=== PATIENT | male | born 1970 | race Caucasian/White ===

== ENCOUNTER 2016-08-15 08:30 | Emergency (ER) | payer SELFPAY ==
[~2016-08-15] VITALS: Ht 180.3 cm; Wt 100.0 kg
[~2016-08-15 08:30] MED LIST: CYCL10TA9 PO; HYDR1TAB PO; HYDR1TAB3 PO; IBP800T PO; NAPR500T PO; PRD20T PO; TBR.3OP51 OP; flexeril PO
--- OUTSIDE RECORDS SUMMARY | 2016-08-15 08:36 | XMS REPORT | Continuity of Care Document ---
Author Author [facility] Organization [facility] Address Unknown Phone Unavailable Care Team Providers Care Insurance Billing Specialist Name Role Phone NO, LOCAL PHYSICIAN PCP Unavailable Insurance Providers Payer Name Policy Number Subscriber Name Relationship [facility] [id number] Niko Dimas Self / Same As Patient Advance Directives Directive Response Recorded Date/Time Advance Directives No 10/20/15 10:12am Resuscitation Status Full Code 10/20/15 10:12am Chief Complaint and Reason for Visit Chief Complaint Back Problems Reason for Visit Back pain Problems Active Problems Medical Problem Onset Date Status Back pain Unknown Acute Medications Current Home Medications Medication Dose Units Route Directions Days/Qty Instructions Start Date Hydrocodone Bit/Acetaminophen 1 Each 1 Each Oral Every 4HRS as needed 10 02/22/10 Naproxen 500 Mg 500 Mg Oral Twice A Day as needed for Pain 30 10/20/15 [Flexeril] 5 Mg Oral Three Times A Day as needed for Pain 20 10/20/15 Past Home Medications Medication Directions Ordered Status Prednisone 20 Mg Tab, 3 Tab Oral Daily 09/29/09 Discontinued Acetaminophen/Hydrocodone Bitart 1 Each Tablet, 1 - 2 Each Oral Q4hr Prn 31/03 Discontinued Cyclobenzaprine Hcl (Flexeril) 10 Mg Tablet, 1 Each Oral Three Times A Day And Prn 09/29/09 Discontinued Tobramycin Sulfate 5 Ml Soln, 0 Ophthalmic Give Every 4 Hrs On Schedule 24/03 Discontinued Ibuprofen 800 Mg Tab, 800 Mg Oral Three Times A Day as needed 02/22/10 Discontinued Social History Social History Problem Response Recorded Date/Time Alcohol Use Denies Use 10/20/2015 10:12am Recreational Drug Use No 10/20/2015 10:12am Recent Foreign Travel No 10/20/2015 10:09am Recent Infectious Disease Exposure No 10/20/2015 10:09am Hospitalization with Isolation Denies 10/20/2015 10:09am Smoking Status Never a Smoker 10/20/2015 10:12am Query Response Start Date Stop Date Smoking Status Never a Smoker Hospital Discharge Instructions No hospital discharge instructions. Plan of Care Discharge Date 10/20/15 11:15am Disposition 01 HOME, SELF-CARE Condition at Discharge Stable Instructions/Education Provided Acute Low Back Pain (ED) Prescriptions See Medication Section Referrals NO,LOCAL PHYSICIAN - Primary Care Physician Additional Instructions/Education 1. Medication as directed 2. Follow-up with your doctor next week All discharge instructions reviewed with patient and/or family. Voiced understanding. Functional Status No functional status results. Allergies, Adverse Reactions, Alerts Allergen Type Severity Reaction Status Last Updated Morphine Allergy Mild Active 09/29/09 Immunizations No immunization records. Vital Signs Acute Vital Signs Vital Response Date/Time Temperature (Fahrenheit) 97.8 degrees F (97.6 - 99.5) 10/20/2015 10:09am Temperature (Calculated Celsius) 36.43892 degrees C (36.4 - 37.5) 10/20/2015 10:09am Temperature Source Temporal 10/20/2015 10:09am Pulse Rate (adult) 52 bpm (60 - 90) 10/20/2015 10:09am Respiratory Rate 18 bpm (12 - 24) 10/20/2015 10:09am O2 Sat by Pulse Oximetry 96 % (88 - 100) 10/20/2015 10:09am Blood Pressure 141/99 mm Hg 10/20/2015 10:09am Blood Pressure Mean 113 mm Hg 10/20/2015 10:09am Pain Pain Intensity 10 10/20/2015 10:54am Height (Feet) 5 feet 10/20/2015 10:09am Height (Inches) 10.00 inches 10/20/2015 10:09am Height (Calculated Centimeters) 177.654996 cm 10/20/2015 10:09am Weight (Pounds) 213 pounds 10/20/2015 10:09am Weight (Ounces) 8.0 oz 10/20/2015 10:09am Weight (Calculated Grams) 52896.972 gm 10/20/2015 10:09am Weight (Calculated Kilograms) 96.053739 kilograms 10/20/2015 10:09am Height 5 ft 10 in Weight 213 lb Body Mass Index 30.6 kg/m^2 Results No known relevant diagnostic tests, laboratory data and/or discharge summary. Procedures Procedure Status Date Provider(s) Cardiac event recording Completed 09/11/15 CAR GUTIERREZ Encounters Encounter Location Arrival/Admit Date Discharge/Depart Date Attending Provider Departed Emergency Room [facility] 10/20/15 9:15am 10/19 11:15am ECTOR OCONNOR APRN Registered Recurring [facility] 10/05/15 8:30am CAR GUTIERREZ Recent Diagnosis
[2016-08-15] MEDS ORDERED: SULF1TAB35 PO (09:31)
[2016-08-15] MEDS ORDERED: ERYT1OIN6 OP (09:31)
--- NOTE | 2016-08-15 09:32 | ED EENT ---
History of Present Illness General Chief Complaint: Eye Problems Stated Complaint: LEFT EYE RED/SWOLLEN Nursing Triage Note: PT REPORTS REDNESS AND SWELLING TO L UPPER EYELID. HE DENIES ANY INJURY OR VISUAL CHANGES. Source: patient Exam Limitations: no limitations History of Present Illness Time seen by provider: 09:20 Initial Comments This 46-year-old presents to the emergency room with complaints of swelling and redness to the left upper eyelid for about 4 days. He denies any injury or foreign body. He has had similar episodes in the past. He denies any significant itching or pain. He used a stye medication from [facility]. On prior episodes he had a white head that ruptured. Vision is unaffected. Allergies and Home Medications Allergies Coded Allergies: Morphine (Unverified Allergy, Mild, 09/29/09) Home Medications #20 5 MG PO TID PRN PRN PAIN Prescribed by: ECTOR OCONNOR on 10/20/15 1105 Erythromycin Base 1 Gm Oint...g. #1 0 OP Q4H 1/2 inch Prescribed by: MICHELLE FOREMAN on 08/15/16 0931 Hydrocodone Bit/Acetaminophen 1 Each Tablet #10 1 EACH PO Q4H PRN PRN Prescribed by: BETINA VAIL on 02/22/10 1028 Naproxen 500 Mg Tablet #30 500 MG PO BID PRN PRN PAIN Prescribed by: ECTOR OCONNOR on 10/20/15 1105 Sulfamethoxazole/Trimethoprim 1 Each Tablet #14 1 EACH PO BID Prescribed by: MICHELLE FOREMAN on 08/15/16 0931 Review of Systems Constitutional: no symptoms reported Eyes: See HPI Ears: No Symptoms Reported Nose: no symptoms reported Mouth: no symptoms reported Throat: no symptoms reported Respiratory: no symptoms reported Skin: see HPI Neurological: No Symptoms Reported Past Lhuyyep-Yebasc-Ajvubd Hx Patient Social History Alcohol Use: Denies Use Recreational Drug Use: No Smoking Status: Never a Smoker 2nd Hand Smoke Exposure: No Recent Foreign Travel: No Contact w/Someone Who Travel: No Recent Infectious Disease Expo: No Recent Hopitalizations: No Seasonal Allergies Seasonal Allergies: No Surgeries HX Surgeries: Yes Surgeries: Abdominal (abdominal trauma) Respiratory Hx Respiratory Disorders: No Cardiovascular Hx Cardiac Disorders: No Neurological Hx Neurological Disorders: No Reproductive System Hx Reproductive Disorders: No Genitourinary Hx Genitourinary Disorders: No Gastrointestinal Hx Gastrointestinal Disorders: No Musculoskeletal Hx Musculoskeletal Disorders: No Endocrine Hx Endocrine Disorders: No HEENT HX ENT Disorders: No Cancer Hx Cancer: No Psychosocial Hx Psychiatric Problems: No Physical Exam Vital Signs Vital Sign - Last 12Hours 08/15/16 09:08 Temp 98.4 Pulse 68 Resp 16 B/P 146/100 Pulse Ox 98 O2 Delivery Room Air General Appearance: WD/WN no apparent distress Eyes: right eye normal inspection, left eye lid inflammation (erythema, swelling, and induration of the medial upper eyelid), bilateral eye EOMI, bilateral eye PERRL Ears: bilateral ear TM normal, bilateral ear auricle normal, bilateral ear canal normal Nose: normal inspection Mouth/Throat: normal mouth inspection Neck: normal inspection Cardiovascular: regular rate, rhythm no edema Respiratory: lungs clear normal breath sounds no respiratory distress Neurologic/Psychiatric: condemnation engineer II-XII nml as tested no motor/sensory deficits alert normal mood/affect oriented x 3 Skin: warm/dry other (periorbital and eyelid erythema of the left eye) Progress/Results/Core Measures Results/Orders Vital Signs/I&O Blood Pressure Mean: 115 Departure Impression Impression: Primary Impression: Cellulitis of eyelid Qualified Code: H00.036 - Abscess of eyelid left eye, unspecified eyelid Disposition: HOME, SELF-CARE Condition: Stable Departure-Patient Inst. Decision time for Depature: 09:30 Referrals: NO,LOCAL PHYSICIAN (PCP/Family) Primary Care Physician Patient Instructions: PERIORBITAL CELLULITIS Add. Discharge Instructions: Complete your antibiotics as prescribed. Follow-up with an professional bass fisher. Return to emergency room if symptoms worsen. You may use Tylenol and/or ibuprofen for pain. All discharge instructions reviewed with patient and/or family. Voiced understanding. Scripts Erythromycin Base (Erythromycin Opthalmic Ointment)1 Gm Oint...g. Op Q4h #1 Tube 1/2 inch Prov:MICHELLE PATRICK MD 08/15/16 Sulfamethoxazole/Trimethoprim (Bactrim Ds Tablet)1 Each Tablet1 Each PO BID #14 TAB Prov:MICHELLE PATRICK MD 08/15/16 MICHELLE PATRICK MD Aug 15, 2016 09:32
[2016-08-15 09:40] VITALS: BP 146/100
== END 2016-08-15 09:40 | disposition home or self-care (01) ==
LOC: EDUNIT# 08:30 → ER 08:33
DX: H00.034 Abscess of left upper eyelid (principal)
CPT/HCPCS: 99282

== ENCOUNTER 2019-04-05 04:27 | Emergency (ER) | payer SELFPAY ==
[~2019-04-05] VITALS: Ht 180 cm; Wt 86.0 kg
[~2019-04-05 04:27] MED LIST changes: +ERYT1OIN6 OP; +NAPR-1071 PO; -NAPR500T PO; +SULF1TAB35 PO
[2019-04-05 05:00] VITALS: BP 141/94
--- NOTE | 2019-04-05 05:00 | NUR ---
PT BECAME ANGRY AND BALLED HIS FIST AT THIS NURSE AFTER AN IV WAS INSERTED, EVEN AFTER THE NEED FOR THIS TEST WAS EXPLAINED. PT DEMANDED IT BE REMOVED AND BEGAN TO CURSE AT DR. PATRICK AND STATED ILL JUST LEAVE THIS MOTHER FUCKER, REFERENCING THE FACILITY. THE PT WAS ADVISED THAT IT WAS HIS RIGHT TO DO SO, BUT WAS ALSO EXPLAINED THE RISKS OF THIS DECISION. IV WAS DC'D AND PT LEFT FACILITY AMA, REFUSING TO SIGN FORM.
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
== END 2019-04-05 05:01 | disposition left against medical advice (07) ==
LOC: EDUNIT# 04:27 → ER 04:30
DX: L03.116 Cellulitis of left lower limb (principal); R45.1 Restlessness and agitation; F91.8 Other conduct disorders; Z88.5 Allergy status to narcotic agent

== ENCOUNTER 2020-11-30 13:01 | Emergency (ER) | payer SELFPAY ==
[~2020-11-30] VITALS: Ht 180.3 cm; Wt 88.5 kg
[2020-11-30 13:24] VITALS: BP 171/96
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
[2020-11-30] MEDS ORDERED: DOXY100T2 PO (13:41)
[2020-11-30] MEDS ORDERED: DOXYCYCLINE 100 MG (VIBRAMYCIN) TABLET PO SCH (13:45)
[2020-11-30] MEDS ORDERED: HYDROcodone/APAP 5 MG/325 MG (LORTAB) TAB PO ONE (13:45)
--- NOTE | 2020-11-30 14:07 | Diagnostic Imaging Report ---
INDICATION: Right hand pain and swelling. TECHNIQUE: AP, oblique, and lateral views of the right hand reveal no acute fracture or malalignment. FINDINGS: There is no abnormal lytic or sclerotic focus. There is focal swelling along the medial aspect of the hand adjacent to the fifth metacarpophalangeal joint. No definite radiopaque foreign body is identified. IMPRESSION: Medial hand swelling could be due to cellulitis. Clinical correlation is recommended. No acute osseous abnormality is detected. Dictated by: Dictated on workstation # [id number]
== END 2020-11-30 14:04 | disposition home or self-care (01) ==
LOC: EDUNIT# 13:01 → ER 13:03
DX: L02.511 Cutaneous abscess of right hand (principal)
CPT/HCPCS: 73130; 87070; 87077; 87186; 87205

== ENCOUNTER 2021-12-31 22:58 | Emergency (ER) | payer SELFPAY ==
[~2021-12-31 22:58] MED LIST changes: +DOXY100T2 PO; -SULF1TAB35 PO; +SULF1TAB38 PO
[2021-12-31 23:13] VITALS: BP 149/83
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
[2021-12-31] MEDS ORDERED: NS IV 1000 ML 1,000 ML IV SCH (23:30)
== END 2021-12-31 23:48 | disposition left against medical advice (07) ==
LOC: EDUNIT# 22:58 → ER 23:00
DX: E86.0 Dehydration (principal); R55 Syncope and collapse; Z28.310 Unvaccinated for COVID-19
CPT/HCPCS: 99281

== ENCOUNTER 2022-01-10 07:57 | Emergency (ER) | payer SELFPAY ==
[~2022-01-10] VITALS: Ht 180.3 cm; Wt 88.5 kg
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
[2022-01-10] MEDS ORDERED: HYDROcodone/APAP 7.5 MG/325 MG (LORTAB, LORCET PLUS) TABLET PO ONE (08:30)
[2022-01-10] MEDS ORDERED: TRIM/SULFAMETH 160/800 (SEPTRA DS) TAB PO ONE (08:30)
--- NOTE | 2022-01-10 08:54 | Diagnostic Imaging Report ---
PROCEDURE: US right lower extremity venous. TECHNIQUE: Multiple real-time grayscale images were obtained over the right lower extremity in various projections. Additional spectral analysis and color Doppler duplex images were also obtained. INDICATION: Pain and swelling. FINDINGS: The right common femoral, superficial femoral, popliteal veins and tibial veins demonstrate normal response to compression, augmentation, and Valsalva. There are no right lower extremity fluid collections or masses. IMPRESSION: No evidence of deep vein thrombosis in the right lower extremity. Dictated by: Dictated on workstation # [id number]
[2022-01-10] MEDS ORDERED: SULF1TAB34 PO (09:05)
[2022-01-10] MEDS ORDERED: ACHD5005 PO (09:05)
[2022-01-10 09:30] VITALS: BP 145/96
== END 2022-01-10 09:30 | disposition home or self-care (01) ==
LOC: EDUNIT# 07:57 → ER 07:58
DX: L03.115 Cellulitis of right lower limb (principal); Z28.310 Unvaccinated for COVID-19
CPT/HCPCS: 87070; 87077; 87186; 87205; 99283

== ENCOUNTER 2022-01-13 01:57 | Emergency (ER) | payer SELFPAY ==
[~2022-01-13] VITALS: Ht 180.3 cm; Wt 88.4 kg
[~2022-01-13 01:57] MED LIST changes: +ACHD5005 PO; +SULF1TAB34 PO
[2022-01-13 02:03] VITALS: BP 165/95
== END 2022-01-13 02:25 | disposition left against medical advice (07) ==
LOC: EDUNIT# 01:57 → ER 02:00
DX: L02.415 Cutaneous abscess of right lower limb (principal); Z28.310 Unvaccinated for COVID-19
CPT/HCPCS: 99281

== ENCOUNTER 2023-01-03 09:43 | Emergency (ER) | payer SELFPAY ==
[~2023-01-03] VITALS: Ht 180 cm; Wt 91.0 kg
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
[2023-01-03 10:03] VITALS: BP 140/96
== END 2023-01-03 10:02 | disposition home or self-care (01) ==
LOC: EDUNIT# 09:43 → ER 09:45
DX: S80.861A Insect bite (nonvenomous), right lower leg, initial encounter (principal); Z28.310 Unvaccinated for COVID-19; W57.XXXA Bitten or stung by nonvenomous insect and other nonvenomous arthropods, initial encounter
CPT/HCPCS: 99281

== ENCOUNTER 2023-05-10 21:26 | Emergency (ER) | payer SELFPAY ==
[~2023-05-10] VITALS: Ht 180 cm; Wt 86.0 kg
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
[2023-05-10 23:00] VITALS: BP 134/84
== END 2023-05-10 22:58 | disposition home or self-care (01) ==
LOC: EDUNIT# 21:26 → ER 21:29
DX: B34.9 Viral infection, unspecified (principal); R09.89 Other specified symptoms and signs involving the circulatory and respiratory systems; R53.1 Weakness; R53.83 Other fatigue; R05.9 Cough, unspecified
CPT/HCPCS: 87636; 99283